=== PATIENT | female | born 1980 | race Caucasian/White ===

== ENCOUNTER 2021-01-10 18:02 | Emergency (ER) | payer SELFPAY ==
[~2021-01-10] VITALS: Ht 160 cm; Wt 50.0 kg
[~2021-01-10 18:02] MED LIST: EFFEXOR-XR150 MG PO; KLONOPIN 0.5MG0.5 MG PO; MOTRIN 800800 MG/TAB PO; PERCOCET 5/321 UDTAB PO; PRENATAL VITAMI1 TA5 PO; PROZAC 10MG10 MG PO; WELLBUTRIN PO
[2021-01-10 18:10] VITALS: TEMP 98.2
[2021-01-10 18:58] LABS: BASO # 0.1 (0.0-0.2); BASO % 0.7 % (0.0-2.0); EOS # 0.1 (0.0-0.7); EOS % 0.4 % (0-4.0); GRAN # 10.3 (1.4-6.5); GRAN % 73.2 % (42.2-75.2); HEMATOCRIT 42.7 % (37.0-47.0); HEMOGLOBIN 14.6 g/dl (12.5-16.0); LYMPH # 2.7 (1.2-3.4); LYMPH % 18.9 % (20.0-51.0); MEAN CELL VOLUME 92 fl (80.0-100.0); MEAN CORPUSCULAR HEMOGLOBIN 31 pg (27.0-31.0); MEAN CORPUSCULAR HGB CONC 34 g/dl (33.0-37.0); MEAN PLATELET VOLUME 9.2 fl (7.4-10.4); MONO # 0.9 (0.1-0.6); MONO % 6.5 % (1.7-9.3); PLATELET COUNT 408 K/mm3 (130-400); RED BLOOD COUNT 4.66 M/mm3 (4.10-5.30); REDCELL DISTRIBUTION WIDTH-CV 13.4 % (11.5-14.5)
[2021-01-10 19:39] LABS: ALBUMIN 4.8 gm/dL (3.5-5.0); BILIRUBIN,TOTAL 0.5 mg/dL (0.0-1.0); CALCIUM 9.8 mg/dL (8.4-10.2); CREATININE, serum 0.67 (0.52-1.25); POTASSIUM 3.9 mmol/L (3.4-5.0); TOTAL PROTEIN 7.9 gm/dL (6.4-8.2)
[2021-01-10 20:03] LABS: COLLECTION METHOD CLEAN CATCH
[2021-01-10 20:16] LABS: MUCOUS Present /lpf; PH 6 (5-8); SQUAMOUS EPITHELIAL 0-2 /hpf; URINE APPEARANCE Clear; URINE BACTERIA None Seen /hpf; URINE BILIRUBIN Negative (NEGATIVE); URINE BLOOD 2+ (NEGATIVE); URINE COLOR Yellow; URINE GLUCOSE Negative (NEGATIVE); URINE KETONE 1+ (NEGATIVE); URINE LEUKOCYTE ESTERASE Negative (NEGATIVE); URINE NITRATE Negative (NEGATIVE); URINE PROTEIN(semi-quant) Negative (NEGATIVE); URINE UROBILINOGEN Negative (NEGATIVE)
[2021-01-10 20:22] LABS: TRICYCLIC ANTIDEPRESS URINE NEGATIVE
[2021-01-10 20:30] LABS: TSH w REFLEX 1.05 uIU/mL (0.465-4.680)
[2021-01-10 22:15] VITALS: BP 121/70; PULSE 71
== END 2021-01-10 22:33 | disposition home or self-care (01) ==
LOC: COL.ER 18:02
PROVIDERS: Nurse Practitioner Primary Care
DX: T76.11XA Adult physical abuse, suspected, initial encounter (principal); F41.9 Anxiety disorder, unspecified; F17.200 Nicotine dependence, unspecified, uncomplicated; Z32.02 Encounter for pregnancy test, result negative; Z79.899 Other long term (current) drug therapy
CPT/HCPCS: J7030

== ENCOUNTER 2023-09-18 20:59 | Emergency (ER) | payer SELFPAY ==
[~2023-09-18] VITALS: Ht 165.1 cm; Wt 63.6 kg
[~2023-09-18 20:59] MED LIST changes: +BUSPAR5 MG PO; +EFFEXOR 75M75 MG/TAB PO; +SEROQUEL50 MG PO; +STRATTERA60 MG PO
[2023-09-18 21:06] VITALS: TEMP 98.2
[2023-09-18] MEDS ORDERED: Ondansetron 4 MG/2 ML VIAL IV ONE (21:30)
[2023-09-18] MEDS ORDERED: NS 1,000 ML IV ONE (21:30)
[2023-09-18 21:41] LABS: BASO # 0.1 K/mm3 (0.0-0.2); EOS # 0.1 K/mm3 (0.0-0.7); GRAN # 5.8 K/mm3 (1.4-6.5); GRAN % 62.9 % (42.2-75.2); HEMATOCRIT 41.2 % (37.0-47.0); HEMOGLOBIN 13.9 g/dl (12.5-16.0); LYMPH # 2.6 K/mm3 (1.2-3.4); LYMPH % 28.1 % (20.0-51.0); MEAN CELL VOLUME 93 fl (80.0-100.0); MEAN CORPUSCULAR HEMOGLOBIN 31 pg (27-31); MEAN CORPUSCULAR HGB CONC 34 g/dl (33.0-37.0); MEAN PLATELET VOLUME 9.2 fl (7.4-10.4); MONO # 0.6 K/mm3 (0.1-0.6); MONO % 6.8 % (1.7-9.3); PLATELET COUNT 402 K/mm3 (130-400); RED BLOOD COUNT 4.43 M/mm3 (4.10-5.30); REDCELL DISTRIBUTION WIDTH-CV 13.6 % (11.5-14.5)
[2023-09-18 22:01] LABS: ALBUMIN 4.2 gm/dL (3.5-5.0); BILIRUBIN,TOTAL 0.6 mg/dL (0.2-1.2); C-REACTIVE PROTEIN 1.09 mg/dL (0.00-0.50); CALCIUM 9.6 mg/dL (8.4-10.2); CREATININE, serum 0.86 mg/dL (0.57-1.11); POTASSIUM 3.5 mmol/L (3.5-4.5); TOTAL PROTEIN 6.9 gm/dL (6.2-8.1)
[2023-09-18] MEDS ORDERED: Ketorolac 30 MG/ML VIAL IV ONE (22:30)
[2023-09-18] MEDS ORDERED: LORazepam 2 MG/ML 1 ML VIAL IV ONE (22:30)
[2023-09-18 22:49] LABS: COLLECTION METHOD CATHETER
[2023-09-18 22:57] LABS: URINE APPEARANCE CLOUDY (CLEAR/HAZY); URINE BLOOD 1+ (NEGATIVE); URINE COLOR YELLOW (YELLOW); URINE GLUCOSE NEGATIVE (NEGATIVE); URINE KETONE 1+ (NEGATIVE); URINE NITRATE POSITIVE (NEGATIVE); URINE PROTEIN(semi-quant) TRACE (NEGATIVE)
[2023-09-18 23:05] LABS: TRICYCLIC ANTIDEPRESS URINE NEGATIVE (NEGATIVE)
[2023-09-18] MEDS ORDERED: MACROBID 1100 MG/CAP PO (23:22)
[2023-09-18] MEDS ORDERED: Home Ondansetron ODT 4 MG #2 ODT/PACK PO ONE (23:30)
[2023-09-18] MEDS ORDERED: Nitrofurantoin (Mono/Macro) 100 MG CAP PO ONE (23:30)
[2023-09-18 23:37] VITALS: BP 152/80; PULSE 102
== END 2023-09-18 23:39 | disposition home or self-care (01) ==
LOC: COL.ER 20:59
PROVIDERS: Emergency Medicine
DX: M79.10 Myalgia, unspecified site (principal); T43.225A Adverse effect of selective serotonin reuptake inhibitors, initial encounter; N39.0 Urinary tract infection, site not specified; F10.10 Alcohol abuse, uncomplicated; F15.90 Other stimulant use, unspecified, uncomplicated; R79.81 Abnormal blood-gas level; Y90.0 Blood alcohol level of less than 20 mg/100 ml; Z88.0 Allergy status to penicillin
CPT/HCPCS: J1885; J2060; J2405; J7030

== ENCOUNTER 2023-09-19 08:33 | Emergency (ER) | payer SELFPAY ==
[~2023-09-19] VITALS: Ht 167.6 cm; Wt 63.6 kg
[~2023-09-19 08:33] MED LIST changes: +MACROBID 1100 MG/CAP PO
[2023-09-19 08:39] VITALS: TEMP 97.9
[2023-09-19] MEDS ORDERED: NS 1,000 ML IV ONE (09:30)
[2023-09-19 10:12] LABS: BASO # 0.1 K/mm3 (0.0-0.2); BASO % 0.7 % (0.0-2.0); EOS # 0.2 K/mm3 (0.0-0.7); GRAN # 6.2 K/mm3 (1.4-6.5); GRAN % 68.6 % (42.2-75.2); HEMOGLOBIN 12.6 g/dl (12.5-16.0); LYMPH % 21.5 % (20.0-51.0); MEAN CELL VOLUME 92 fl (80.0-100.0); MEAN CORPUSCULAR HEMOGLOBIN 31 pg (27-31); MEAN CORPUSCULAR HGB CONC 34 g/dl (33.0-37.0); MEAN PLATELET VOLUME 9.2 fl (7.4-10.4); MONO # 0.6 K/mm3 (0.1-0.6); MONO % 6.9 % (1.7-9.3); PLATELET COUNT 339 K/mm3 (130-400); RED BLOOD COUNT 4.01 M/mm3 (4.10-5.30); REDCELL DISTRIBUTION WIDTH-CV 13.3 % (11.5-14.5)
[2023-09-19 10:19] LABS: HEMATOCRIT 36.7 % (37.0-47.0)
[2023-09-19] MEDS ORDERED: Ondansetron 4 MG/2 ML VIAL IV PRN (10:30)
[2023-09-19 10:34] LABS: ALANINE AMINOTRANSFERASE 25 U/L (0-55); ALBUMIN 3.6 gm/dL (3.5-5.0); ALCOHOL(ethanol),MEDICAL < 10 mg/dL (0-10); ALKALINE PHOSPHATASE 53 U/L (40-150); ANION GAP 11 mmol/L (7-16); AST,SGOT 27 U/L (5-34); BILIRUBIN,TOTAL 0.9 mg/dL (0.2-1.2); BLOOD UREA NITROGEN 14 mg/dL (7-19); CALCIUM 8.6 mg/dL (8.4-10.2); CARBON DIOXIDE 21 mmol/L (22-29); CHLORIDE 110 mmol/L (98-107); GLUCOSE 94 mg/dL (70-99); POTASSIUM 3.7 mmol/L (3.5-4.5); SODIUM 142 mmol/L (136-145)
[2023-09-19 12:34] LABS: TRICYCLIC ANTIDEPRESS URINE NEGATIVE (NEGATIVE)
[2023-09-19 12:47] LABS: COLLECTION METHOD CLEAN CATCH
[2023-09-19 12:55] LABS: URINE APPEARANCE CLEAR (CLEAR/HAZY); URINE BLOOD NEGATIVE (NEGATIVE); URINE COLOR Dark Yellow (YELLOW); URINE GLUCOSE NEGATIVE (NEGATIVE); URINE KETONE 3+ (NEGATIVE); URINE NITRATE NEGATIVE (NEGATIVE); URINE PROTEIN(semi-quant) TRACE (NEGATIVE)
[2023-09-19] MEDS ORDERED: cefTRIAXone 1 G in Water For Injection,Sterile 10 ML IV ONE (14:00)
[2023-09-19 14:12] VITALS: BP 110/72; PULSE 86
== END 2023-09-19 14:14 | disposition home or self-care (01) ==
LOC: COL.ER 08:33
PROVIDERS: Personal Emergency Response Attendant
DX: N39.0 Urinary tract infection, site not specified (principal); F10.20 Alcohol dependence, uncomplicated; F15.10 Other stimulant abuse, uncomplicated; F14.90 Cocaine use, unspecified, uncomplicated; Y90.0 Blood alcohol level of less than 20 mg/100 ml
CPT/HCPCS: J0696; J2405; J7030